=== PATIENT | female | born 1960 | race Caucasian/White ===

== ENCOUNTER 2017-01-18 16:04 | Emergency (ER) | payer OTHER ==
[~2017-01-18] VITALS: Ht 162.6 cm; Wt 69.4 kg
[2017-01-18 16:10] VITALS: BP 144/86
--- NOTE | 2017-01-18 16:34 | RAD ---
Right foot, 3 views, 01/18/2017: History: Injury, pain No fracture or dislocation is identified. The soft tissues are unremarkable. IMPRESSION: No acute right foot abnormality is detected.
--- NOTE | 2017-01-18 16:45 | PHYS DOC ---
General Chief Complaint: FOOT INJURY PAIN Stated Complaint: FOOT INJURY Time Seen by MD: 16:16 Source: patient Exam Limitations: no limitations Problems: History of Present Illness Initial Comments Pt is 56/F to ED c/o right foot pain. Pt states approx 1400 she accidentally dropped the end of a heavy chair she was moving onto dorsal right foot. Pt was wearing shoes, complains of severe dorsal right midfoot pain. Pt ambulatory with pain, she is certain she has fractured her foot. Pain 10/10 sharp throbbing, no numbness/tingling/weakness/ radiating sx no prior right foot injury pt says OTC meds not helping. Pt wearing shoe on my evaluation, when asked she removed the lace up shoe quickly without apparent pain. Light skin touch elicits severe discomfort. Requesting pain medications. Onset: this afternoon Severity: severe Pain/Injury Location: right foot Method of Injury: other Modifying Factors: worse with jarring, worse with movement Allergies: Coded Allergies: No Known Drug Allergies (Unverified , 01/18/17) Past Medical History Medical History: hypertension (HLP) Surgical History: noncontributory Social History Smoker: quit greater than 1 year Alcohol: occasionally Drugs: none Review of Systems Constitutional: denies chills, denies fever Respiratory: denies cough, denies shortness of breath Cardiovascular: denies chest pain, denies palpitations Gastrointestinal: denies diarrhea, denies nausea, denies vomiting Musculoskeletal: see HPI Skin: see HPI Psychiatric/Neurological: denies numbness, denies paresthesia, denies tingling , denies weakness Physical Exam General Appearance: WD/WN, no apparent distress Neck: non-tender, supple Cardiovascular/Respiratory: normal peripheral pulses, normal breath sounds, no respiratory distress Back: no CVA tenderness, no vertebral tenderness Ankles: bilateral ankle non-tender, bilateral ankle normal inspection, bilateral ankle normal range of motion, bilateral ankle no evidence of injury Feet: right foot other (no skin changes, no swelling, severe dorsal right foot TTP to light skin touch no obvious visible injury palpatory eval limited due to reported pt tolerance) Neurologic/Tendon: normal sensation, normal motor functions, normal tendon functions, responds to pain, no evidence tendon injury Psychiatric: alert, oriented x 3 Skin: normal color, warm/dry Orders, Labs, Meds PATIENT: SONNYGLADYS Jose J ACCOUNT: [id number] : 1960 LOCATION: ER AGE: 56 SEX: F EXAM STATUS: PRE ER ORD. PHYSICIAN: LORETTA VELAQSUEZ DO REASON: dropped sofa dorsum of foot PROCEDURE: FOOT RIGHT 3V Right foot, 3 views, 01/18/2017: History: Injury, pain No fracture or dislocation is identified. The soft tissues are unremarkable. IMPRESSION: No acute right foot abnormality is detected. DICTATED AND SIGNED BY: ALEX LOJA MD DATE: 01/18/17 1631 CC: LADONNA JONES; LORETTA VELASQUEZ DO ~ I discussed tx plan, pt expressed agreement/understanding. Departure Time of Disposition: 16:51 Disposition: 01 HOME, SELF-CARE Diagnosis: right foot contusion Condition: GOOD Patient Instructions: Foot Contusion, RICE - Routine Care for Injuries, Easy-to -Read Additional Instructions: RICE, see handout. Wear post-op shoe as needed for symptom control. Rx: naprosyn, norco 5mg #10 Take medications with food. Follow up with your doctor in 7-10 days for recheck. Return to ED with new or changing symptoms. LORETTA VELASQUEZ DO Jan 18, 2017 16:45
[2017-01-18] MEDS ORDERED: NAPR500T PO (16:50)
[2017-01-18] MEDS ORDERED: HYDR-971 PO (16:50)
== END 2017-01-18 17:32 | disposition home or self-care (01) ==
LOC: ER 16:04
DX: S90.31XA Contusion of right foot, initial encounter (principal); E78.5 Hyperlipidemia, unspecified; I10 Essential (primary) hypertension; Z87.891 Personal history of nicotine dependence; W20.8XXA Other cause of strike by thrown, projected or falling object, initial encounter; Y93.89 Activity, other specified; Y99.8 Other external cause status; Y92.89 Other specified places as the place of occurrence of the external cause
CPT/HCPCS: 73630; 99284

== ENCOUNTER 2020-07-03 14:57 | Emergency (ER) | payer OTHER ==
[~2020-07-03] VITALS: Ht 162.6 cm; Wt 140.0 kg
[~2020-07-03 14:57] MED LIST: HYDR-3165 PO; NAPR-683 PO
[2020-07-03 15:00] VITALS: BP 165/88
--- NOTE | 2020-07-03 15:45 | PHYS DOC ---
Past History Past Medical History: No Pertinent History Past Surgical History: No Surgical History Alcohol Use: None Drug Use: None General Adult EDM: Chief Complaint: SORE THROAT HPI: HPI: History obtained with the patient. Patient is a 60-year-old female with past medical history notable for CVA, hyperlipidemia, hypertension who presents with chief complaint of exposure to COVID. 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 She notes that that patient has tested positive for coronavirus. She states that she does care for the patient without a mask on frequently. She notes she has had increased fatigue over the past week. She notes a sore throat. She notes some chest heaviness but denies shortness of breath. Notes a mild dry cough. Denies any headaches. Denies vomiting. Denies objective fevers. Has not tried medicine at home to help. States her only concern is being tested for COVID at this time. She notes she has been eating and drinking well. Denies pain with opening her mouth. Denies changes to her voice. Denies neck pain. She states she has no other complaints. Review of Systems: Review of Systems: Constitutional: Denies fever or chills Eyes: Denies change in visual acuity HENT: Positive for sore throat Respiratory: Positive for cough Cardiovascular: Denies chest pain or edema GI: Denies abdominal pain, nausea, vomiting, bloody stools or diarrhea : Denies dysuria Musculoskeletal: Denies back pain or joint pain Integument: Denies rash Neurologic: Denies headache, focal weakness or sensory changes Endocrine: Denies polyuria or polydipsia Lymphatic: Denies swollen glands Psychiatric: Denies depression or anxiety Heart Score: Risk Factors: Risk Factors: DM, Current or recent (<one month) smoker, HTN, HLP, family history of CAD, obesity. Risk Scores: Score 0 - 3: 2.5% MACE over next 6 weeks - Discharge Home Score 4 - 6: 20.3% MACE over next 6 weeks - Admit for Clinical Observation Score 7 - 10: 72.7% MACE over next 6 weeks - Early Invasive Strategies Allergies: Allergies: Allergies Coded Allergies Type Severity Reaction Last Updated Verified No Known Drug Allergies 01/18/17 No Physical Exam: PE: Constitutional: Well developed, well nourished, no acute distress, non-toxic appearance. [] HENT: Normocephalic, atraumatic, bilateral external ears normal, oropharynx moist, no oral exudates, nose normal. [] Eyes: PERRLA, EOMI, conjunctiva normal, no discharge. [] Neck: Normal range of motion, no tenderness, supple, no stridor. [] Cardiovascular:Heart rate regular rhythm, no murmur [] Lungs & Thorax: Bilateral breath sounds clear to auscultation [] Abdomen: soft, no tenderness, no masses, no pulsatile masses. [] Skin: Warm, dry, no erythema, no rash. [] Back: No tenderness, no CVA tenderness. [] Extremities: No tenderness, no cyanosis, no clubbing, ROM intact, no edema. [] Neurologic: Alert and oriented X 3, normal motor function, normal sensory function, no focal deficits noted. [] Psychologic: Affect normal, judgement normal, mood normal. [] Current Patient Data: Vital Signs: Vital Signs Date Time Temp Pulse Resp B/P (MAP) Pulse Ox O2 Delivery O2 Flow Rate FiO2 07/03/20 15:00 97.4 74 16 165/88 (113) 100 Room Air EKG: EKG: [] Radiology/Procedures: Radiology/Procedures: [] Course & Med Decision Making: Course & Med Decision Making Pertinent Labs and Imaging studies reviewed. (See chart for details) [] Patient is a well-appearing 60-year-old female presents with concern for COVID-19 exposure. Initial vital signs unremarkable. Physical exam grossly unremarkable. Lungs clear to auscultation. No signs of tachypnea or hypoxia. Chest x-ray to be deferred. Patient states the only thing she wants is COVID swab testing completed. This was obtained. She will be notified of positive results in the next several days. She was instructed on quarantine measures. She is declining any further work-up at this time and overall I do feel this is reasonable. Supportive care measures were given at home. Return precautions discussed and understood. Instructed to follow-up with her primary care physician in the next 2 to 3 days. Stable for discharge home. COVID-19 CRITERIA: The patient was evaluated during the global COVID-19 pandemic, and that diagnosis was suspected/considered upon their initial presentation. Their evaluation, treatment and testing was consistent with current guidelines for patients who present with complaints or symptoms that may be related to COVID-19. Dragon Disclaimer: [place] Disclaimer: This electronic medical record was generated, in whole or in part, using a voice recognition dictation system. Departure Departure: Impression: Primary Impression: Suspected COVID-19 virus infection Additional Impression: Sore throat Disposition: 01 HOME/RESIDENCE PRIOR TO ADM Condition: STABLE Referrals: LADONNA JONES (PCP) Additional Instructions: You have been tested for or diagnosed with COVID-19. It is an infection caused by a new type of coronavirus. COVID-19 will cause cold-like or mild flu symptoms in most. It can cause more severe symptoms like problems breathing in some. There is no treatment for COVID-19. The body will clear the infection over time. Self-care will help to ease discomfort. Steps to Take: Self-Care Rest as needed. Healthy habits may help you feel better. Steps include: Choose healthy foods including fruits and vegetables. Drink water throughout the day. Get plenty of sleep each night. If you smoke, try to quit. It may ease breathing. Avoid alcohol. Keep Others Healthy The virus can spread to others. Droplets are released every time you sneeze or cough. The droplets can get into the mouth, nose, or eyes of people near you and lead to infection. To lower the chances of spreading COVID-19 to others: Stay at home until your doctor has said it is safe to leave. If you tested positive this will mean staying isolated until both of the following are true: At least 7 days have passed since the start of illness. You are free of fever for at least 72 hours without the use of medicine. During this time: - Avoid public areas, events, or transportation. Do not return to work or school until your doctor has said it is safe to do so. - Call ahead if you need to go to a medical center. Let them know you may have COVID-19. It will help them guide you where to go. They may also ask you to wear a facemask when you come to the office. - If you call for emergency medical services, let them know you may have COVID- 19. While at home: - Try to avoid close contact with others. Stay about 6 feet away. - If possible, spend most of your time in a separate room from others. - Use a face mask if you will be in close contact with others such as sharing a room or vehicle. - Have someone wipe down common surfaces in the home. Use household resistance welding machine operator every day on areas like doorknobs, counters, or sinks. - Cough or sneeze into a tissue. Throw the tissue away right after use. If a tissue is not available, cough or sneeze into your elbow. - Wash your hands often. Wash them after sneezing or coughing. Use soap and water and wash for at least 20 seconds. Alcohol based hand equipment or machinery cleaner can be used if soap and water is not available. - Do not prepare food for others. Avoid sharing personal items like forks, spoons, or toothbrushes. - Avoid close contact with pets while you are sick. There is no evidence of the virus passing to pets. This is a safety step until more is known about this virus. Isolation can be frustrating. Social interaction can help. Keep in touch with friends and family through phone and tech options. You can still interact with others in your home, just keep a safe distance of about 6 feet. Follow-up: Your doctors office will check in with you to see if there are any changes in your health. You may be asked to keep track of symptoms to share with them. They will also let you know when you are clear to be in public again. Problems to Look Out For: Contact your doctor if your recovery is not going as you expect. Get emergency care if you have problems such as: - Trouble breathing - Nonstop chest pain or pressure - Changes in awareness, confusion, or problems waking - Lips or face have bluish color - Worsening of symptoms If you think you have an emergency, call for emergency medical services right away. [facility] from [facility] DO Jul 03, 2020 15:45
--- NOTE | 2020-07-06 10:52 | NUR ---
IP: notified patient of COVID result.
== END 2020-07-03 15:56 | disposition home or self-care (01) ==
LOC: ER 14:57
DX: J02.9 Acute pharyngitis, unspecified (principal); E78.5 Hyperlipidemia, unspecified; I10 Essential (primary) hypertension; Z20.828 Contact with and (suspected) exposure to other viral communicable diseases; Z86.73 Personal history of transient ischemic attack (TIA), and cerebral infarction without residual deficits
CPT/HCPCS: 99283; U0003

== ENCOUNTER 2021-09-04 12:22 | Emergency (ER) | payer OTHER ==
[~2021-09-04] VITALS: Ht 162.6 cm; Wt 70.5 kg
[2021-09-04] MEDS ORDERED: ONDANSETRON PF 4 MG/2 ML VIAL. IVP ONE (12:45)
[2021-09-04] MEDS ORDERED: MORPHINE SULFATE 4 MG/ML DISP.SYRIN. IV ONE ×2 (12:45→15:00)
[2021-09-04] MEDS ORDERED: IV NORMAL SALINE 1,000ML 1,000 ML IV ONE (12:45)
[2021-09-04] MEDS ORDERED: IOHEXOL 300 MG/ML 75 ML VIAL. IV ONE (13:00)
[2021-09-04 13:05] LABS: BASO % 0 % (0-3); EOS # 0.1 x10^3/uL (0.0-0.7); EOS % 1 % (0-3); HEMATOCRIT 39.2 % (36.0-47.0); HEMOGLOBIN 13.1 g/dL (12.0-15.5); LYMPH # 1.5 x10^3/uL (1.0-4.8); LYMPH % 16 % (24-48); MEAN CORPUSCULAR HEMOGLOBIN 32 pg (25-35); MEAN CORPUSCULAR HGB CONC 33 g/dL (31-37); MEAN CORPUSCULAR VOLUME 97 fL (79-100); MONO # 1.1 x10^3/uL (0.0-1.1); MONO % 12 % (0-9); NEUT # 6.5 x10^3uL (1.8-7.7); NEUT % 71 % (31-73); PLATELET COUNT 189 x10^3/uL (140-400); RED BLOOD COUNT 4.03 x10^6/uL (3.50-5.40); RED CELL DISTRIBUTION WIDTH 12.6 % (11.5-14.5); WHITE BLOOD COUNT 9.2 x10^3/uL (4.0-11.0)
[2021-09-04 13:15] LABS: CALCIUM 8.6 mg/dL (8.5-10.1); CREATININE 0.7 mg/dL (0.6-1.0); GFR 84.8; POTASSIUM 3.8 mmol/L (3.5-5.1)
[2021-09-04 13:21] LABS: ALBUMIN 3.7 g/dL (3.4-5.0); ALBUMIN/GLOBULIN RATIO 0.9 (1.0-1.7); TOTAL BILIRUBIN 0.6 mg/dL (0.2-1.0); TOTAL PROTEIN 7.7 g/dL (6.4-8.2)
--- NOTE | 2021-09-04 13:22 | PHYS DOC ---
Past History Past Medical History: No Pertinent History (EVONNE VALDERRAMA APRN) Past Surgical History: No Surgical History (EVONNE VALDERRAMA APRN) Alcohol Use: Occasionally Drug Use: None (EVONNE VALDERRAMA APRN) Adult General Chief Complaint Chief Complaint: NAUSEA/VOMITING/DIARRHEA HPI HPI Patient is a 61-year-old female presents to the emergency department complaining of off-and-on headaches, congestion, runny nose, abdominal pains, black runny diarrhea, nausea. Patient reports she is concerned she might have a bleeding ulcer and come to the emergency department to rule this out today. Patient denies allergies to medications, reports home medications as lisinopril, cholesterol medication, Zyrtec, and an acid reflux medication. Patient denies chest pains, shortness of breath. Denies recent fever or chills. Denies other physical complaints or physical concerns. Patient reports family history of colon cancer. Denies increased urinary frequency, burning with urination or urinary pressure, denies STI concerns. (EVONNE VALDERRAMA APRN) Review of Systems Review of Systems 14 body systems of review of systems have been reviewed. See HPI for pertinent positives and negative responses, otherwise all other systems are negative, no npertinent or noncontributory. Constitutional: Negative except as outlined in HPI above. Skin: Negative except as outlined in HPI above. Eyes: Negative except as outlined in HPI above. HENT: Negative except as outlined in HPI above. Respiratory: Negative except as outlined in HPI above. Cardiovascular: Negative except as outlined in HPI above. GI: Negative except as outlined in HPI above. : Negative except as outlined in HPI above. Musculoskeletal: Negative except as outlined in HPI above. Integument: Negative except as outlined in HPI above. Neurologic: Negative except as outlined in HPI above. Endocrine: Negative except as outlined in HPI above. Lymphatic: Negative except as outlined in HPI above. Psychiatric: Negative except as outlined in HPI above. (EVONNE VALDERRAMA APRN) Current Medications Current Medications Current Medications Medications (Trade) Dose Ordered Sig/Eileen Start Time Stop Time Status Last Admin Dose Admin Iohexol (Omnipaque 300 Mg/ml) 75 ml 1X ONCE 09/04/21 13:00 09/04/21 13:01 DC 09/04/21 13:11 75 ML Morphine Sulfate (Morphine 4mg Syringe) 4 mg 1X ONCE 09/04/21 12:45 09/04/21 12:47 DC 09/04/21 12:55 4 MG Ondansetron HCl (Zofran) 4 mg 1X ONCE 09/04/21 12:45 09/04/21 12:47 DC 09/04/21 12:55 4 MG Sodium Chloride 1,000 ml @ 1,000 mls/hr 1X ONCE 09/04/21 12:45 09/04/21 13:44 09/04/21 12:55 1,000 MLS/HR (EVONNE VALDERRAMA APRN) Allergies Allergies Allergies Coded Allergies Type Severity Reaction Last Updated Verified No Known Drug Allergies 01/18/17 No (EVONNE VALDERRAMA APRN) Physical Exam Physical Exam Constitutional: Well developed, well nourished, no acute distress, non-toxic appearance. 61-year-old female in no apparent distress. HENT: Normocephalic, atraumatic. Eyes: Conjunctiva normal, no discharge. Neck: Normal range of motion, no stridor. Cardiovascular: No cyanosis appreciated, distal cap refill less than 2 seconds. Lungs & Thorax: Patient is in no respiratory distress, no audible adventitious lung sounds appreciated. Abdomen: No visual abnormalities noted, no bruising or skin discoloration to the abdomen, pain to palpation all 4 quadrants generalized, no specific McBurney's point tenderness, rebound tenderness, Leone's sign, or psoas sign. Skin: Warm, dry, no erythema, no rash. Back: No tenderness, no deformities. Extremities: No tenderness, no cyanosis, no clubbing, ROM intact, no edema. Neurologic: Alert and oriented X 3, normal motor function, normal sensory function, no focal deficits noted. Psychologic: Affect normal, judgement normal, mood normal. (EVONNE VALDERRAMA APRN) Current Patient Data Vital Signs Vital Signs Date Time Temp Pulse Resp B/P (MAP) Pulse Ox O2 Delivery O2 Flow Rate FiO2 09/04/21 12:55 16 98 Room Air 09/04/21 12:33 99.0 77 141/90 (107) Lab Results Laboratory Tests Test 09/04/21 12:50 White Blood Count 9.2 x10^3/uL (4.0-11.0) Red Blood Count 4.03 x10^6/uL (3.50-5.40) Hemoglobin 13.1 g/dL (12.0-15.5) Hematocrit 39.2 % (36.0-47.0) Mean Corpuscular Volume 97 fL (79-100) Mean Corpuscular Hemoglobin 32 pg (25-35) Mean Corpuscular Hemoglobin Concent 33 g/dL (31-37) Red Cell Distribution Width 12.6 % (11.5-14.5) Platelet Count 189 x10^3/uL (140-400) Neutrophils (%) (Auto) 71 % (31-73) Lymphocytes (%) (Auto) 16 % (24-48) L Monocytes (%) (Auto) 12 % (0-9) H Eosinophils (%) (Auto) 1 % (0-3) Basophils (%) (Auto) 0 % (0-3) Neutrophils # (Auto) 6.5 x10^3uL (1.8-7.7) Lymphocytes # (Auto) 1.5 x10^3/uL (1.0-4.8) Monocytes # (Auto) 1.1 x10^3/uL (0.0-1.1) Eosinophils # (Auto) 0.1 x10^3/uL (0.0-0.7) Basophils # (Auto) 0.0 x10^3/uL (0.0-0.2) Sodium Level 137 mmol/L (136-145) Potassium Level 3.8 mmol/L (3.5-5.1) Chloride Level 103 mmol/L (98-107) Carbon Dioxide Level 27 mmol/L (21-32) Anion Gap 7 (6-14) Blood Urea Nitrogen 13 mg/dL (7-20) Creatinine 0.7 mg/dL (0.6-1.0) Estimated GFR (Cockcroft-Gault) 84.8 BUN/Creatinine Ratio 19 (6-20) Glucose Level 93 mg/dL (70-99) Calcium Level 8.6 mg/dL (8.5-10.1) Total Bilirubin Pending Aspartate Amino Transferase (AST) Pending Alanine Aminotransferase (ALT) Pending Alkaline Phosphatase Pending Total Protein Pending Albumin Pending Albumin/Globulin Ratio Pending Lipase Pending (EVONNE VALDERRAMA APRN) EKG EKG [] (EVONNE VALDERRAMA APRN) Radiology/Procedures Radiology/Procedures STATUS: REG ER ORD. PHYSICIAN: EVONNE VALDERRAMA APRN REASON: Severe generalized abdominal pain - 75mls omni 300 PROCEDURE: CT ABD PELV W/ IV CONTRST ONLY EXAM: CT Abdomen and Pelvis with IV contrast CLINICAL HISTORY: Severe generalized abdominal pain COMPARISON: none TECHNIQUE: Helical CT of the abdomen and pelvis was performed following the administration of intravenous contrast. Axial, coronal and sagittal reformatted images were generated. PQRS compliance statement - One or more of the following individualized dose reduction techniques were utilized for this study: 1. Automated exposure control 2. Adjustment of the mA and/or kV according to patient size 3. Use of iterative reconstruction technique FINDINGS: Lower Chest: Minimal dependent opacities likely scarring/atelectasis. Abdomen and Pelvis: No focal liver lesion. Phrygian cap deformity of the gallbladder without associated wall thickening or pericholecystic fluid. Subcentimeter hypodense hepatic lesions possibly cystic. Left hepatic cystic lesion is seen. There is trace infiltration between the pancreatic tail and the splenic flexure of the colon. Spleen is unremarkable. Adrenal glands are unremarkable. Symmetric nephrograms. No focal renal lesion. No hydronephrosis. No hydroureter. Bladder is unremarkable. Appendix is normal. Moderate colonic stool content is seen. No small or large bowel dilatation. No bowel obstruction. No abdominal or pelvic lymphadenopathy. No abdominal or pelvic ascites. Small fat-containing periumbilical hernia is seen. Aorta is grossly normal in caliber. Bones: No aggressive osseous lesion is seen. Degenerative changes of the spine particularly at the lumbosacral junction. Leftward curvature lumbar spine. IMPRESSION: There is infiltration between the pancreatic tail and splenic flexure of the colon with involvement of the respective structures. There is uncertain if this represents changes of acute pancreatitis within the tail or focal colitis and can be correlated with clinical examination and lab values. In addition colonoscopy is recommended if not recently performed as underlying colonic mass could result in this appearance as well. Electronically signed by: Terry Helms MD (09/04/2021 1:31 PM) [facility] (EVONNE VALDERRAMA APRN) Heart Score C/O Chest Pain: No Risk Factors: Risk Factors: DM, Current or recent (<one month) smoker, HTN, HLP, family history of CAD, obesity. Risk Scores: Risk Factors: DM, Current or recent (<one month) smoker, HTN, HLP, family history of CAD, obesity. (EVONNE VALDERRAMA APRN) Course & Med Decision Making Course & Med Decision Making Pertinent Labs and Imaging studies reviewed. (See chart for details) 61-year-old female, vital signs reviewed, presents emergency department concerning abdominal pain for the past several months. Patient reports getting worse over the past 2 weeks, physical examination concerning for pancreatitis versus gastritis versus colitis versus other acute abdominal process. Will order CT abdomen pelvis with IV contrast, CBC, CMP, lipase, urinalysis assay, stool to rule out occult blood, 1 L normal saline, 4 mg Zofran, 4 mg morphine for pain. CBC unremarkable, CMP unremarkable however there are elevated ALT and AST enzymes without hyperbilirubinemia, CT concerning for colitis which is consistent with patient's presentation. Reviewed results with patient, patient reports pain from 10 out of 10 down to a 2 or 3 out of 10 and is now increasing at this time, will give 4 mg morphine IV. Discussed with patient strict follow- up with primary care this week, follow-up with GI specialty for colonoscopy. Patient reports she had one 7 years ago and was told she could wait 10 years before her next colonoscopy. Discussed with patient will prescribe Augmentin for colitis. Take as directed unless otherwise told by GI specialty your primary care provider. Reviewed return to ER precautions or concerns. Patient is amenable to and gave verbal understanding of ED discharge planning. Discussed with the patient all findings and diagnostic testing as well as the need to follow-up with their primary care provider for further evaluation and treatment or return to the ED if any new or worsening symptoms. Strict return precautions were also discussed at length, the patient voiced understanding and agreement with the discharge planning. The patient was nontoxic in appearance, in no apparent distress, and hemodynamically stable at the time of disposition. (EVONNE VALDERRAMA APRN) Dragon Disclaimer Dragon Disclaimer This electronic medical record was generated, in whole or in part, using a voice recognition dictation system. (EVONNE VALDERRAMA APRN) Attending Co-Sign The patient was seen and interviewed as well as examined at the bedside. The chart was reviewed. The case was discussed. Agree with the plan of care. (LONNY MARIO DO) Departure Departure: Impression: Primary Impression: Colitis Additional Impressions: Abnormal abdominal CT scan Abdominal pain Disposition: HOME / SELF CARE / HOMELESS Condition: GOOD Referrals: ADRIA RAIAS DO (PCP) Patient Instructions: Colitis Additional Instructions: You were seen today in the emergency department for abdominal pain. Your lab work was drawn today, your CBC was normal. Your chemistry profile is as follows sodium 137, potassium 3.8, chloride 103, CO2 27, anion gap 7, BUN 13, creatinine 0.7, GFR 84.8, lipase 192, total bilirubin 0.6, AST 241, ALT 196. Your urinalysis assay was within normal limits, your stool did not have blood. As we discussed, your CT scan did show colitis however with your reported family history of colon cancer and your last colonoscopy was 7 years ago, please follow-up with your primary care physician to obtain referral to GI specialty for colonoscopy. As we discussed I am starting you on an antibiotic that you will take twice a day for the next 10 days, please take as directed until complete. Return to the emergency department for worsening symptoms or other concerns. Thank you for visiting our Emergency Department. It was a pleasure taking care of you today in the emergency department and we appreciate you trusting us with your care. If any additional problems come up don't hesitate to return to visit us. Please follow up with your primary care provider so they can plan additional care if needed and know about the problem that you had. If symptoms worsen come back to the Emergency Department. Any concerning symptoms that start such as chest pain, shortness of air, weakness or numbness on one side of the body, running high fevers or any other concerning symptoms return to the ER. EMERGENCY DEPARTMENT GENERAL DISCHARGE INSTRUCTIONS Thank you for coming to [facility] (ED) today and trusting us with you care. We trust that you had a positivie experience in our Emergency Department. If you wish to speak to the department management, you may call the director at [phone]. YOUR FOLLOW UP INSTRUCTIONS ARE FOLLOWS: 1. Do you have a private Doctor? If you do not have a private doctor, please ask for a resource list of physicians or clinics that may be able to assist you with follow up care. 2. The Emergency Physician has interpreted your x-rays. The X-Ray specialist will also review them. If there is a change in the findings, you will be notified in 48 hours when at all possible. 3. A lab test or culture has been done, your results will be reviewed and you will be notified if you need a change in treatment. ADDITIONAL INSTRUCTIONS AND INFORMATION: 1. Your care today has been supervised by a physician who is specially trained in emergency care. Many problems require more than one evaluation for a complete diagnosis a nd treatment. We recommend that you schedule your follow up appointment as recommended to ensure complete treatment of you illness or injury. If you are unable to obtain follow up care and continue to have a problem, or if your condition worsens, we recommend that you return to the ED. 2. We are not able to safely determine your condition over the phone nor are we able to give sound medical advice over the phone. For these safety reasons, if you call for medical advice we will ask you to come to the ED for further evaluation. 3. If you have any questions regarding these discharge instructions please call the ED at [phone]. SAFETY INFORMATION: In the interest of safety, wellness, and injury prevention; we encourage you to wear your sealbelt, if you smoke; quite smoking, and we encourage family to use a protective helmet for bicycling and other sporting events that present an increased risk for head injury. IF YOUR SYMPTOMS WORSEN OR NEW SYMPTOMS DEVELOP, OR YOU HAVE CONCERNS ABOUT YOUR CONDITION; OR IF YOUR CONDITION WORSENS WHILE YOU ARE WAITING FOR YOUR FOLLOW UP APPOINTMENT; EITHER CONTACT YOUR PRIMARY CARE DOCTOR, THE PHYSICIAN WHOSE NAME AND NUMBER YOU WERE GIVEN, OR RETURN TO THE ED IMMEDIATELY. Scripts Oxycodone HCl/Acetaminophen (Oxycodone-Acetaminophn 7.5-325) 1 Each Tablet 1 EACH PO Q4-6HRS PRN for SEVERE PAIN 7-10, #10 TAB 0 Refills Prov: EVONNE VALDERRAMA APRN 09/04/21 Amoxicillin/Potassium Clav (AUGMENTIN 875-125 TABLET) 1 Each Tablet 1 TAB PO BID for gi infection for 10 Days, #20 TAB 0 Refills Prov: EVONNE VALDERRAMA APRN 09/04/21 Problem Qualifiers Additional Impressions: Abdominal pain Abdominal location: generalized Qualified Codes: R10.84 - Generalized abdominal pain EVONNE VALDERRAMA APRN Sep 04, 2021 13:22 LONNY MARIO DO Sep 06, 2021 11:10
--- NOTE | 2021-09-04 13:33 | RAD ---
EXAM: CT Abdomen and Pelvis with IV contrast CLINICAL HISTORY: Severe generalized abdominal pain COMPARISON: none TECHNIQUE: Helical CT of the abdomen and pelvis was performed following the administration of intrave nous contrast. Axial, coronal and sagittal reformatted images were generated. PQRS compliance statement - One or more of the following individualized dose reduction techniques wer e utilized for this study: 1. Automated exposure control 2. Adjustment of the mA and/or kV according to patient size 3. Use of iterative reconstruction technique FINDINGS: Lower Chest: Minimal dependent opacities likely scarring/atelectasis. Abdomen and Pelvis: No focal liver lesion. Phrygian cap deformity of the gallbladder without associated wall thickening o r pericholecystic fluid. Subcentimeter hypodense hepatic lesions possibly cystic. Left hepatic cystic lesion is seen. There is trace infiltration between the pancreatic tail and the splenic flexure of t he colon. Spleen is unremarkable. Adrenal glands are unremarkable. Symmetric nephrograms. No focal re nal lesion. No hydronephrosis. No hydroureter. Bladder is unremarkable. Appendix is normal. Moderate colonic stool content is seen. No small or large bowel dilatation. No bowel obstruction. No abdominal or pelvic lymphadenopathy. No abdominal or pelvic ascites. Small fat-containing periumbi lical hernia is seen. Aorta is grossly normal in caliber. Bones: No aggressive osseous lesion is seen. Degenerative changes of the spine particularly at the lumbosacr al junction. Leftward curvature lumbar spine. IMPRESSION: There is infiltration between the pancreatic tail and splenic flexure of the colon with involvement o f the respective structures. There is uncertain if this represents changes of acute pancreatitis with in the tail or focal colitis and can be correlated with clinical examination and lab values. In addit ion colonoscopy is recommended if not recently performed as underlying colonic mass could result in t his appearance as well. Electronically signed by: Terry Helms MD (09/04/2021 1:31 PM) [facility]
[2021-09-04 14:05] LABS: BILIRUBIN,URINE NEG (NEG); CLARITY,URINE CLEAR; COLOR,URINE YELLOW; GLUCOSE,URINE NEG (NEG); NITRITE,URINE NEG (NEG); UROBILINOGEN,URINE 0.2 mg/dL (0.2 mg/dL)
[2021-09-04 14:06] LABS: BACTERIA,URINE 0 /HPF (0-FEW); RBC,URINE 0 /HPF (0-2); WBC,URINE 0 /HPF (0-4)
[2021-09-04 14:46] LABS: FECAL OB PT NEGATIVE (NEG)
[2021-09-04 15:30] VITALS: BP 127/82
[2021-09-04] MEDS ORDERED: AMOX1TAB61 PO (15:51)
[2021-09-04] MEDS ORDERED: AMOXICILLIN/K CLAV 875/125MG TABLET. PO ONE (16:00)
[2021-09-04] MEDS ORDERED: OXYC1TAB17 PO (16:11)
== END 2021-09-04 16:23 | disposition home or self-care (01) ==
LOC: ER 12:22
DX: K52.9 Noninfective gastroenteritis and colitis, unspecified (principal); R93.5 Abnormal findings on diagnostic imaging of other abdominal regions, including retroperitoneum; R51.9 Headache, unspecified
CPT/HCPCS: 36415; 74177; 80053; 81001; 82274; 83690; 85025; 96361; 96374; 96375; 96376; 99285; J2270; J2405; J7030; Q9967